=== PATIENT | male | born 1955 | race Caucasian/White ===

== ENCOUNTER 2016-12-25 22:35 | Emergency (ER) | payer OTHER ==
[~2016-12-25] VITALS: Ht 175.3 cm; Wt 107.3 kg
[~2016-12-25 22:35] MED LIST: ASPIR-LOW81 MG PO; B12; CENTRUM MEN'S1 EACH PO; COQ10; FLAXSEED; LISINOPRIL10 MG PO; METFORMIN HCL1000 MG PO; METFORMIN HCL500 M4 PO; METFORMIN HCL500 MG PO; SIMVASTATIN20 MG PO; [UNRECOGNIZED DRUG - OTHER]; [UNRECOGNIZED DRUG - OTHER] PO
[2016-12-26 00:33] VITALS: BP 149/83
== END 2016-12-26 02:00 | disposition home or self-care (01) ==
LOC: EME 22:35
DX: R20.0 Anesthesia of skin (principal); L97.529 Non-pressure chronic ulcer of other part of left foot with unspecified severity; E11.621 Type 2 diabetes mellitus with foot ulcer; Z46.89 Encounter for fitting and adjustment of other specified devices; Z79.84 Long term (current) use of oral hypoglycemic drugs; I10 Essential (primary) hypertension; Z87.891 Personal history of nicotine dependence
CPT/HCPCS: 99281; 99284